=== PATIENT | female | born 1955 | race Caucasian/White ===

== ENCOUNTER → 2020-06-04 | Outpatient (CLI) | payer OTHER, MEDICARE, MEDICAID ==
[~2020-06-04] MED LIST: ALEN70TA2 PO; CALC-464 PO; HYDR-757 PO; OMEG-12 PO; PHEN30CA PO; SIMV5TAB6 PO
== END ==
LOC: GIR 17:23
PROVIDERS: ATTEND Nurse Practitioner Family
DX: Z01.89 Encounter for other specified special examinations (principal)
CPT/HCPCS: 84145